=== PATIENT | female | born 1990 | race Caucasian/White ===

== ENCOUNTER 2017-07-02 17:05 | Outpatient (CLI) | payer OTHER ==
[2017-07-02 18:17] LABS: AMNISURE (ROM) NEGATIVE (NEGATIVE)
--- NOTE | 2017-07-02 18:32 | Non Stress Test Report ---
Non Stress Test Datetime Report Generated by CPN: 07/02/2017 18:32 DEMOGRAPHIC EGA NST: 40.4 INDICATION Indication for Study: Polyhydramnios; Ordered by Provider VITAL SIGNS Temperature - NST: 98.3 Pulse - NST: 114 RESP - NST: 18 NBPSYS NST: 132 NBPDIA NST: 78 MONITORING Monitor Explained: Monitor Explained; Test Explained; Patient Verbalized Understanding Time on Monitor: 07/02/2017 17:53 Time off Monitor: 07/02/2017 18:23 NST Duration: 30 NST INTERVENTIONS NST Interventions: PO Hydration; Reposition Patient Physician Notified NST: P COSME, CNM REVIEWED STRIP BABY A: [id number] BABY A Movement : Present Contraction Frequency : IRRREG FHR Baseline : 135 Accelerations : 15X15 Decelerations : None Variability : Moderate 6-25bpm NST Review: Meets Criteria for Reactive NST NST Review and Verified By : José Manuel Olivares RN NSRuben Results: Reactive NST REPORT Report Trigger: Send Report
== END 2017-07-02 18:32 | disposition home or self-care (01) ==
LOC: LC 17:05
PROVIDERS: ATTEND Obstetrics & Gynecology Gynecology
PROC: 4A1HXCZ Monitoring of Products of Conception, Cardiac Rate, External Approach (ICD-10-PCS; principal; 2017-07-02)
DX: O40.3XX0 Polyhydramnios, third trimester, not applicable or unspecified (principal); O48.0 Post-term pregnancy; Z3A.40 40 weeks gestation of pregnancy
CPT/HCPCS: 59025; 84112

== ENCOUNTER 2017-07-03 04:32 | Inpatient (IN) | payer OTHER ==
[2017-07-03] MEDS ORDERED: RINGERS SOLUTION,LACTATED 1,000 ML IV PRN (04:54)
[2017-07-03] MEDS ORDERED: RINGERS SOLUTION,LACTATED 1,000 ML IV ONE (04:54)
[2017-07-03] MEDS ORDERED: OXYTOCIN/NORMAL SALINE 20 UNIT/1,000 ML RTUINJ ONE (05:12)
[2017-07-03] MEDS ORDERED: MISOPROSTOL 0.2 MG TABLET ONE (05:12)
[2017-07-03] MEDS ORDERED: LIDOCAINE 1% INJ-PF (10 MG/ML) 30 ML SDV ONE (05:12)
--- NOTE | 2017-07-03 06:03 | Admission Physical ---
Datetime Report Generated by CPN: 07/03/2017 06:03 CURRENT ADMISSION Chief Complaint: Uterine Contractions Indication for Induction: Not Applicable Admit Impression : Term, Intrauterine Admit Plan: Admit to Unit ALLERGIES Medication Allergies: Yes Medication Allergies: Penicillins (07/03/2017) Latex: No Latex Allergies OBSTETRICAL HISTORY EDC: 06/28/2017 00:00 : 2 Para: 1 Term: 0 : 1 SAB: 0 IAB: 0 Ectopic: 0 Livin Cesareans: 0 VBACs: 0 Multiple Births: 0 PHYSICAL EXAM General: Normal HEENT: Normal Neurologic: Normal Thyroid: Normal Heart: Normal Lungs: Normal Breast: Deferred Back: Normal Abdomen: Normal Genitourinary Exam: Normal Extremities: Normal DTRs: Normal Pelvic Type: Adequate MEMBRANES Membranes: Bulging Amniotic Fluid Color: Clear FETUS A EGA: 40.5 Monitoring: External US Decelerations: None PLANS FOR LABOR AND DELIVERY Feeding Preference: Breast Benefit of Breast Feed Discussed: Yes INFORMED CONSENT Signature: with User ID: [email or web address]
[2017-07-03] MEDS ORDERED: PROMETHAZINE HCL 25 MG SUPP.RECT PR PRN (06:06)
[2017-07-03] MEDS ORDERED: ZOLPIDEM TARTRATE 5 MG TABLET PO PRN (06:06)
[2017-07-03] MEDS ORDERED: ACETAMINOPHEN WITH CODEINE #3 TABLET PO PRN (06:06)
[2017-07-03] MEDS ORDERED: DIPH/PERTUSS(ACELL)/TETANUS VAC/PF 0.5 ML SYR (>=10YO) IM PRN (06:06)
[2017-07-03] MEDS ORDERED: GLYCERIN/WITCH HAZEL LEAF 1 EACH MED..PAD TP PRN (06:06)
[2017-07-03] MEDS ORDERED: DIPHENHYDRAMINE HCL 25 MG CAPSULE PO PRN (06:06)
[2017-07-03] MEDS ORDERED: BENZOCAINE/MENTHOL AEROSOL SPRAY 56 ML TOP PRN (06:06)
[2017-07-03] MEDS ORDERED: PROMETHAZINE HCL 25 MG TABLET PO PRN (06:06)
[2017-07-03] MEDS ORDERED: DIBUCAINE 1% OINTMENT 28 GM TP PRN (06:06)
[2017-07-03] MEDS ORDERED: PROMETHAZINE HCL INJ 25 MG/1 ML VIAL IV PRN (06:06)
[2017-07-03] MEDS ORDERED: MAGNESIUM HYDROXIDE SUSP 30 ML UDCUP PO PRN (06:06)
[2017-07-03] MEDS ORDERED: ACETAMINOPHEN 650 MG SUPP.RECT PR PRN (06:06)
[2017-07-03] MEDS ORDERED: NA PHOS,M-B/NA PHOS,DI-BA (ADULT) 133 ML ENEMA PR PRN (06:06)
[2017-07-03] MEDS ORDERED: PSEUDOEPHEDRINE HCL 30 MG TABLET PO PRN (06:06)
[2017-07-03] MEDS ORDERED: OXYTOCIN/NORMAL SALINE 20 UNIT/1,000 ML RTUINJ IV PRN (06:06)
[2017-07-03] MEDS ORDERED: MEASLES,MUMPS&RUBELLA VACC/PF 0.5 ML VIAL SUBCUT PRN (06:06)
[2017-07-03 07:13] LABS: ABSOLUTE LYMPHOCYTES (AUTO) 1.4 10^3/uL (0.5-4.7); ABSOLUTE MONOCYTES (AUTO) 0.6 10^3/uL (0.1-1.4); ABSOLUTE NEUT (AUTO) 12.1 10^3/uL (1.7-8.2); BASOPHILS % (AUTO) 0.3 % (0-2); EOSINOPHILS % (AUTO) 0.3 % (0-6); HEMATOCRIT 39.2 % (36.0-47.0); HEMOGLOBIN 13.5 g/dL (12.0-15.5); LYMPHOCYTES % (AUTO) 9.9 % (13-45); MEAN CORPUSCULAR HEMOGLOBIN 31.4 pg (27.0-33.4); MEAN CORPUSCULAR HGB CONC 34.3 g/dL (32.0-36.0); MEAN CORPUSCULAR VOLUME 92 fl (80-97); MONOCYTES % (AUTO) 4.3 % (3-13); PLATELET COUNT 160 10^3/uL (150-450); RED BLOOD COUNT 4.29 10^6/uL (3.72-5.28); RED CELL DISTRIBUTION WIDTH 14.7 % (11.5-14.0); SEGMENTED NEUTROPHILS % (AUTO) 85.2 % (42-78); TOTAL CELLS COUNTED % (AUTO) 100 %; WHITE BLOOD COUNT 14.2 10^3/uL (4.0-10.5)
[2017-07-03] MEDS ORDERED: (PENDING PHARMACY ID) (Prenatal Vit/Iron Fum/Folic Ac [Prenatal Tablet] 1 TAB) PO SCH (10:00)
[2017-07-03] MEDS: FAMOTIDINE 20 MG TABLET PO SCH ×2 (10:47→22:52)
[2017-07-03] MEDS: PRENATAL VITAMIN W DHA CAPSULE PO SCH (10:47)
[2017-07-03] MEDS: DOCUSATE SODIUM 100 MG CAPSULE PO SCH ×2 (10:48→17:16)
[2017-07-03] MEDS: FERROUS SULFATE 325 MG TABLET PO SCH ×2 (10:48→17:16)
[2017-07-03] MEDS: SENNOSIDES/DOCUSATE 8.6-50 MG 1 EACH TABLET PO SCH (10:48)
[2017-07-03] MEDS: IBUPROFEN 800 MG TABLET PO SCH ×2 (15:49→22:52)
[2017-07-04] MEDS: IBUPROFEN 800 MG TABLET PO SCH ×2 (06:26→14:15)
[2017-07-04 08:12] VITALS: BP 129/80
[2017-07-04 08:48] LABS: HEMATOCRIT 38.2 % (36.0-47.0); MEAN CORPUSCULAR HEMOGLOBIN 31.1 pg (27.0-33.4); MEAN CORPUSCULAR VOLUME 91 fl (80-97); PLATELET COUNT 166 10^3/uL (150-450); RED BLOOD COUNT 4.18 10^6/uL (3.72-5.28); RED CELL DISTRIBUTION WIDTH 15.1 % (11.5-14.0); WHITE BLOOD COUNT 12.4 10^3/uL (4.0-10.5)
[2017-07-04] MEDS: PRENATAL VITAMIN W DHA CAPSULE PO SCH (10:36)
[2017-07-04] MEDS: FERROUS SULFATE 325 MG TABLET PO SCH (10:37)
[2017-07-04] MEDS: FAMOTIDINE 20 MG TABLET PO SCH (10:37)
[2017-07-04] MEDS: DOCUSATE SODIUM 100 MG CAPSULE PO SCH (10:37)
[2017-07-04] MEDS: SENNOSIDES/DOCUSATE 8.6-50 MG 1 EACH TABLET PO SCH (10:38)
--- NOTE | 2017-07-04 12:13 | PDOC PROGRESS REPORT ---
Subjective-OB Progress Note for:: 07/04/17 Subjective: S/p day #1 Pt denies concerns, states lochia is stable, pain well controlled, voiding without difficulty, desires d/c home early. Physical Exam (OB) Vital Signs: Temp Pulse Resp BP Pulse Ox 97.8 F 58 L 20 129/80 H 100 07/04/17 07:39 07/04/17 07:39 07/04/17 07:39 07/04/17 07:39 07/04/17 07:39 Intake & Output 07/03/17 07/04/17 07/05/17 06:59 06:59 06:59 Intake Total 650 Balance 650 Weight 87.8 kg - Lochia Lochia Amount: Small 10-25 ml Lochia Color: Rubra/Red - Abdomen Description: Soft Hernia Present: No Fundal Description: Firm, Midline Fundal Height: u/u - u/2 Objective-Diagnostic Laboratory: 07/04/17 08:26 07/04/17 08:26 WBC 12.4 H RBC 4.18 Hgb 13.0 Hct 38.2 MCV 91 MCH 31.1 MCHC 34.0 RDW 15.1 H Plt Count 166 Assessment and Plan(PN) - Assessment and Plan (1) Premature rupture of membranes Qualifiers: PROM onset of labor timing: unspecified duration between rupture of membranes and onset of labor PROM gestational age: -unspecified trimester Qualified Code(s): O42.919 - premature rupture of membranes , unspecified as to length of time between rupture and onset of labor, unspecified trimester Is this a current diagnosis for this admission?: Yes Plan: routine pp care (2) Vacuum extraction, delivered, current hospitalization Is this a current diagnosis for this admission?: Yes Plan: routine pp care - Time Spent with Patient Time with patient: Less than 15 minutes Critical Time spent with patient: Less than 15 minutes Smoking Education Provided: Over 3 minutes - Disposition Anticipated Discharge: Home Within: within 24 hours
--- NOTE | 2017-07-04 12:17 | PDOC DISCHARGE SUMMARY ---
Final Diagnosis Discharge Date: 07/04/17 - Final Diagnosis (1) Premature rupture of membranes Is this a current diagnosis for this admission?: Yes (2) Vacuum extraction, delivered, current hospitalization Is this a current diagnosis for this admission?: Yes Discharge Data - Discharge Medication Prescriptions: Docusate Sodium [Colace 100 mg Capsule] 100 mg PO BID #60 capsule Ibuprofen [Motrin 800 mg Tablet] 800 mg PO Q8 #60 tablet Home Medications: Vit/Iron Fum/Folic AC [ Tablet] 1 tab PO DAILY 08/17/15 Docusate Sodium [Colace 100 mg Capsule] 100 mg PO BID #60 capsule 07/04/17 Ibuprofen [Motrin 800 mg Tablet] 800 mg PO Q8 #60 tablet 07/04/17 Gestational Age: 40.5 Reason(s) for Admission: Onset of Labor Procedures: NST Intrapartum Procedure(s): Spontaneous Vaginal Delivery, Vacuum Extraction Complication(s): Laceration-Perineal Laceration-Degree: 1st - [place] Data Baby 1 Male at 1 minute: 8 at 5 minutes: 9 Weight: 3.657 kg Home with Mother: Yes Complications: No - Diagnosis Test Laboratory: Temp Pulse Resp BP Pulse Ox 97.8 F 58 L 20 129/80 H 100 07/04/17 07:39 07/04/17 07:39 07/04/17 07:39 07/04/17 07:39 07/04/17 07:39 07/03/17 07/04/17 06:24 08:26 RBC 4.29 4.18 Hgb 13.5 13.0 Hct 39.2 38.2 - Discharge information/Instructions Discharge Activity: Activity As Tolerated, Pelvic Rest, No tub bath Discharge Diet: Regular Disposition: HOME, SELF-CARE Follow up with: [facility] in: 4, Weeks
--- NOTE | 2017-07-13 16:33 | Delivery Summary ---
Del Sum A-C Datetime Report Generated by CPN: 07/13/2017 16:33 DELIVERY PERSONNEL DELIVERY PERSONNEL: [id number] Delivery Doctor:: Jose James MD Labor and Delivery Nurse:: Jovana Irwin RNbutton tacker Nurse:: Jovana Irwin RNbutton tacker Nurse:: Essence Dooley RNbutton tacker Nurse:: Saumya Mayberry RN Mainframe Consultant:: Saumya Mayberry RN Nursery Nurse:: Liyah Anne RN MSN Press Leader/ICT SUPPORT TECHNICIANS: Teri Ortega CNA Additional Personnel: : Essence Dooley RN MATERNAL INFORMATION Delivery Anesthesia: None Medications After Delivery: Pitocin Drip 20 Units/1000ml NSS Estimated Blood Loss (ml): 300 Maternal Complications: Precipitous Labor (<3hrs) Other Maternal Complications: nurse controlled LABOR SUMMARY EDC: 06/28/2017 00:00 No. Babies in Womb: 1 Attempted: No Labor Anesthesia: None LABOR INFORMATION Reason for Induction: Not Applicable Onset of Labor: 07/03/2017 02:00 Complete Dilatation: 07/03/2017 05:29 Oxytocin: N/A Group B Beta Strep: Negative Antibiotics # of Doses: 0 Steroids Given: None Reason Steroids Not Administered: Not Applicable MEMBRANES Membranes Rupture Method: Spontaneous Rupture of Membranes: 07/03/2017 05:37 Rupture of Membranes: 07/03/2017 05:37 Length of Rupture (hr): 0.10 Amniotic Fluid Color: Clear Amniotic Fluid Amount: Moderate Amniotic Fluid Odor: Normal STAGES OF LABOR Stage 1 hr: 3 Stage 1 min: 29 Stage 2 hr: 0 Stage 2 min: 14 Stage 3 hr: 0 Stage 3 min: 6 Total Time in Labor hr: 3 Total Time in Labor min: 49 VAGINAL DELIVERY Episiotomy: None Laceration #1: Perineal Laceration Extension #1: First Degree Laceration Repair: Yes Laceration Repair Note: repair with 2-0 vicryl Sponge Count Correct: N/A Sharps Count Correct: Yes CSECTION DELIVERY Primary Indication: N/A Secondary Indication: N/A CSection Incidence: N/A Labor: N/A Elective: N/A CSection Incision: N/A BABY A INFORMATION Delivery Date/Time: 07/03/2017 05:43 Method of Delivery: Vaginal Born in Route : No : N/A Forceps: N/A Vacuum Extraction: N/A Shoulder Dystocia : No PRESENTATION/POSITION BABY A Presentation: Cephalic Cephalic Presentation: Vertex Vertex Position: Direct OA Breech Presentation: N/A PLACENTA INFORMATION BABY A Placenta Delivery Time : 07/03/2017 05:49 Placenta Method of Delivery: Spontaneous Placenta Status: Delivered SCORES BABY A Heart Rate 1 min: >100 bpm Resp Effort 1 min: Good Cry Reflex Irritability 1 min: Cough or Sneeze or Pulls Away Muscle Tone 1 min: Active Motion Color 1 min: Blue/Pale Resuscitation Effort 1 min: Tactile Stimulation SCORE 1 MIN: 8 Heart Rate 5 min: >100 bpm Resp Effort 5 min: Good Cry Reflex Irritability 5 min: Cough or Sneeze or Pulls Away Muscle Tone 5 min: Active Motion Color 5 min: Body [place], Extremities Blue Resuscitation Effort 5 min: N/A SCORE 5 MIN: 9 INFANT INFORMATION BABY A Gestational Age at Delivery: 40.5 Gestational Status: Full Term- 39- 40.6 Weeks Infant Outcome : Liveborn Condition : Stable Infant Sex: Male IDENTIFICATION BABY A Verification Date/Time: 07/03/2017 05:58 ID Band Number: [id number] Mother's Name Verified: Yes RN Verifying : S. Glendatibkikiir, RNC _ C. Gentilin, RN CORD INFORMATION BABY A No. Cord Vessels: 3 Nuchal Cord : Around Neck x1, Tight Cord Blood Taken: Yes-For Eval (Mom's Blood Type - or O+) Infant Suction: Mouth; Nose ASSESSMENT BABY A Complications: Extended Bradycardia; Other Complications- Other: terminal mec Physical Findings at Delivery: Molding of the Head Infant Respirations: Appears Normal Skin to Skin: Yes Engineering Teacher/ALS Called : No Care By: Finesse Anne RN/Finesse Vrea Transferred To: Remains with Mother BABY B INFORMATION : N/A SIGNATURES Signature: with User ID: [email or web address]
== END 2017-07-04 17:30 | disposition home or self-care (01) | DRG 775 ==
LOC: LC 04:32 → LR 05:04 → 2S 08:25
PROVIDERS: ADMIT Obstetrics & Gynecology Gynecology; ATTEND Obstetrics & Gynecology Gynecology
PROC: 10D07Z6 Extraction of Products of Conception, Vacuum, Via Natural or Artificial Opening (ICD-10-PCS; principal; 2017-07-03)
PROC: 0HQ9XZZ Repair Perineum Skin, External Approach (ICD-10-PCS; 2017-07-03)
PROC: 4A1HXCZ Monitoring of Products of Conception, Cardiac Rate, External Approach (ICD-10-PCS; 2017-07-03)
DX: O62.3 Precipitate labor (principal); O70.0 First degree perineal laceration during delivery; O69.1XX0 Labor and delivery complicated by cord around neck, with compression, not applicable or unspecified; O77.0 Labor and delivery complicated by meconium in amniotic fluid; Z88.0 Allergy status to penicillin; Z3A.40 40 weeks gestation of pregnancy; Z37.0 Single live birth
CPT/HCPCS: 36415; 85025; 85027; 86592; 86850; 86870; 86900; 86901; J2590; J3490